=== PATIENT | male | born 1980 | race Caucasian/White ===

== ENCOUNTER 2016-12-27 13:15 | Outpatient (CLI) | payer OTHER ==
--- NOTE | 2016-12-27 16:54 | Diagnostic Imaging Report ---
[facility] [address] 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 Findings: Examination of the left ankle in AP, lateral and oblique views demonstrates a fracture of the medial malleolus with lag screws extending through the fracture fragment into the distal tibial shaft. The ankle mortise is anatomic. 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 Additional metallic dowels are seen extending into the superomedial aspect of the talus. Impression: 1. 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 2. Postoperative changes in the talus. Electronically signed on Dec 27, 2016 3:24:24 PM BOTTOM LOADER by: Jerome LORENZO
--- NOTE | 2016-12-27 17:13 | Diagnostic Imaging Report ---
[facility] [address] [place] [facility].[address] 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 The left foot is otherwise unremarkable without acute fracture, dislocation, arthropathy, or focal bone lesion. Electronically signed on Dec 27, 2016 3:17:09 PM RENTAL REPRESENTATIVE by: Eren LORENZO
== END 2016-12-27 13:16 ==
LOC: RAD 13:15
PROVIDERS: ATTEND Orthopaedic Surgery
DX: S82.892K Other fracture of left lower leg, subsequent encounter for closed fracture with nonunion (principal); X58.XXXD Exposure to other specified factors, subsequent encounter
CPT/HCPCS: 73610; 73630